=== PATIENT | female | born 1980 | race Caucasian/White ===

== ENCOUNTER 2019-02-06 21:49 | Emergency (ER) | payer BC, MEDICAID ==
[~2019-02-06] VITALS: Ht 157.5 cm; Wt 82.0 kg
[~2019-02-06 21:49] MED LIST: FENO145T32 PO; NALT50TA PO; OMEG1CAP6 PO; OMEP-110 PO; ONDA4TAB10 PO; OXYC5TAB3 PO; RISP0.5T3 PO; TRAZ50TA66 PO
[2019-02-06 21:59] VITALS: BP 122/82
[2019-02-06] MEDS ORDERED: HYDR10TA4 PO (22:26)
[2019-02-06] MEDS ORDERED: ANTIDEPRESSANT (22:26)
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
[2019-02-06] MEDS ORDERED: LIDOCAINE-MPF 1%, 2ML ONE (22:56)
[2019-02-06] MEDS ORDERED: DIPH,PERTUSS(ACELL),TET VAC/PF 0.5 ML IM-VACC ONE ×2 (22:56→23:00)
[2019-02-06] MEDS ORDERED: AMOXICILLIN/CLAV 875-125MG TABLET ONE (22:56)
[2019-02-06] MEDS ORDERED: AMOXICILLIN/CLAV 875-125MG TABLET PO SCH (23:00)
[2019-02-06] MEDS ORDERED: LIDOCAINE-MPF 1%, 5ML INFIL ONE (23:00)
--- NOTE | 2019-02-06 23:04 | NUR ---
PT MEDICATED PER MAR
--- NOTE | 2019-02-07 00:04 | NUR ---
TASK RN: NO S/S OF ABX RXN NOTED. DC EDUCATION PROVIDED, PT DEMONSTRATES UNDERSTANDING. PT AMBUALTED STEADILY TO DC WITH FAMILY
== END 2019-02-07 00:06 | disposition home or self-care (01) ==
LOC: ED 23:58
DX: S61.250A Open bite of right index finger without damage to nail, initial encounter (principal); W53.11XA Bitten by rat, initial encounter; Y93.89 Activity, other specified; Y92.89 Other specified places as the place of occurrence of the external cause; Y99.8 Other external cause status
CPT/HCPCS: 12042; 90471; 90715